=== PATIENT | female | born 2000 | race African-American/Black ===

== ENCOUNTER 2021-02-10 19:16 | Emergency (ER) | payer BC, OTHER ==
[2021-02-10] MEDS ORDERED: traMADol HCl 50 MG TAB ONE (20:13)
[2021-02-10] MEDS ORDERED: Ibuprofen 800 MG TAB ONE (20:13)
== END 2021-02-10 20:25 | disposition home or self-care (01) ==
LOC: BURERS 19:16
DX: S70.01XA Contusion of right hip, initial encounter (principal); S40.011A Contusion of right shoulder, initial encounter; V44.6XXA Car passenger injured in collision with heavy transport vehicle or bus in traffic accident, initial encounter